=== PATIENT | female | born 2000 | race Two or more races ===

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

== ENCOUNTER 2020-03-15 16:36 | Outpatient (CLI) | payer OTHER | END 2020-03-15 16:43 | disposition home or self-care (01) | LOC: RAD 16:36 | PROVIDERS: ATTEND General Practice | DX: S69.91XA Unspecified injury of right wrist, hand and finger(s), initial encounter (principal) ==

== ENCOUNTER 2022-10-11 09:54 | Emergency (ER) | payer OTHER ==
[~2022-10-11] VITALS: Ht 162.6 cm; Wt 90.7 kg
== END 2022-10-11 13:45 | disposition home or self-care (01) ==
LOC: ER 09:54
DX: G43.819 Other migraine, intractable, without status migrainosus (principal); G40.802 Other epilepsy, not intractable, without status epilepticus

== ENCOUNTER 2023-07-23 00:39 | Emergency (ER) | payer OTHER ==
[~2023-07-23] VITALS: Ht 162.6 cm; Wt 90.7 kg
[2023-07-23 05:42] LABS: HEMATOCRIT 41.3 % (36.0-45.00); HEMOGLOBIN 14.2 g/dL (12.0-15.00); MEAN CELL VOLUME 87.4 fL (80.00-100.00); MEAN CORPUSCULAR HEMOGLOBIN 30.1 pg (27.00-32.0); MEAN CORPUSCULAR HGB CONC 34.4 g/dl (32.0-36.0); PLATELET COUNT 259 K/uL (150-450); RED BLOOD COUNT 4.72 M/uL (4.00-6.00); RED CELL DISTRIBUTION WIDTH 13.4 % (11.5-14.5)
[2023-07-23] MEDS ORDERED: DOLOGESIC 500-1 EACH PO (07:51)
[2023-07-23] MEDS ORDERED: PHENAGIL TABLE1 EACH PO (07:51)
== END 2023-07-23 08:01 ==
LOC: ER
PROVIDERS: General Practice
DX: R53.81 Other malaise (principal); J06.9 Acute upper respiratory infection, unspecified; Z20.822 Contact with and (suspected) exposure to COVID-19

== ENCOUNTER 2023-08-04 14:55 | Emergency (ER) | payer OTHER ==
[~2023-08-04] VITALS: Ht 162.6 cm; Wt 90.7 kg
[~2023-08-04 14:55] MED LIST: DOLOGESIC 500-1 EACH PO; PHENAGIL TABLE1 EACH PO
[2023-08-04] MEDS ORDERED: TOPAMAX50 MG (15:35)
[2023-08-04 17:13] LABS: PH,URINE 5.5 (5.0-8.0); URINE APPEARANCE Cloudy; URINE BILIRRUBIN Negative (NEGATIVE); URINE BLOOD Negative; URINE COLOR Yellow; URINE GLUCOSE Negative (NEGATIVE); URINE LEUKOCYTE Moderate; URINE NITRATE Negative; URINE PROTEIN Negative (NEGATIVE)
[2023-08-04 17:16] LABS: URINE BACTERIA 8953.1 uL (0.0-1933); URINE EPITHELIAL CELLS 49.1 uL (0.0-38.8); URINE WBC 102.8 uL (0.0-23.2)
[2023-08-04 17:21] LABS: HEMATOCRIT 42.7 % (36.0-45.00); HEMOGLOBIN 14.6 g/dL (12.0-15.00); MEAN CORPUSCULAR HEMOGLOBIN 29.4 pg (27.00-32.0); MEAN CORPUSCULAR HGB CONC 34.1 g/dl (32.0-36.0); PLATELET COUNT 271 K/uL (150-450); RED BLOOD COUNT 4.97 M/uL (4.00-6.00); RED CELL DISTRIBUTION WIDTH 13.3 % (11.5-14.5)
[2023-08-04 17:35] LABS: CALCIUM 9.4 mg/dL (8.5-10.1); CREATININE SERUM 0.62 mg/dL (0.55-1.02); GFR 117.28; POTASSIUM 3.73 mEq/L (3.5-5.1)
[2023-08-04 17:41] LABS: URINE YEAST FEW /hpf
== END 2023-08-04 21:03 | disposition home or self-care (01) ==
LOC: ER 14:55
PROVIDERS: Emergency Medicine
DX: K29.70 Gastritis, unspecified, without bleeding (principal); R11.10 Vomiting, unspecified; I10 Essential (primary) hypertension